=== PATIENT | male | born 1990 | race Caucasian/White ===

== ENCOUNTER 2018-05-31 14:28 | Emergency (ER) | payer BC, OTHER ==
[2018-05-31 14:38] VITALS: BP 130/85; PULSE 75; RESP 16; TEMP 98.9; O2SAT 100
[2018-05-31] MEDS ORDERED: Naproxen 550 mg Tab PO STA (14:52)
[2018-05-31] MEDS ORDERED: Naproxen 550 mg Tab PO ONE (15:11)
--- NOTE | 2018-05-31 15:48 | RAD ---
Date of service: 05/31/2018 PROCEDURE: Cervical Spine Radiographs. HISTORY: Pain. COMPARISON: None available. TECHNIQUE: 3 views obtained. FINDINGS: BONES: Straightening of the normal cervical lordosis.. No fracture. Dens Intact. DISC SPACES: Normal. SOFT TISSUES: Normal. No prevertebral soft tissue swelling. OTHER FINDINGS: None. IMPRESSION: Straightening of the normal cervical lordosis. No fracture or subluxation seen.
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
--- NOTE | 2018-05-31 16:09 | RAD ---
HISTORY: upper back pain COMPARISON: None available. TECHNIQUE: Chest PA and lateral, 2 views FINDINGS: LUNGS: No focal consolidation. Please note that chest x-ray has limited sensitivity for the detection of pulmonary masses. PLEURA: No significant pleural effusion identified. No definite pneumothorax . CARDIOVASCULAR: The cardiomediastinal silhouette appears within normal limits of size. No atherosclerotic calcification present. OSSEOUS STRUCTURES: No acute osseous abnormality identified. VISUALIZED UPPER ABDOMEN: Unremarkable. OTHER FINDINGS: None. IMPRESSION: No acute findings.
== END 2018-05-31 16:11 | disposition home or self-care (01) ==
LOC: C.ER 14:28
DX: S13.4XXA Sprain of ligaments of cervical spine, initial encounter (principal); S23.3XXA Sprain of ligaments of thoracic spine, initial encounter; V49.40XA Driver injured in collision with unspecified motor vehicles in traffic accident, initial encounter